=== PATIENT | female | born 1975 | race Two or more races ===

== ENCOUNTER 2019-11-13 07:34 | Outpatient (CLI) | payer OTHER | END 2019-11-13 23:59 | disposition home or self-care (01) | LOC: CFH 07:34 | PROVIDERS: ATTEND Internal Medicine | DX: N63.11 Unspecified lump in the right breast, upper outer quadrant (principal); R92.2 Inconclusive mammogram; N60.01 Solitary cyst of right breast | CPT/HCPCS: 76642; 77066; G0279 ==